=== PATIENT | female | born 1955 | race Caucasian/White ===

== ENCOUNTER 2017-11-01 07:10 | Day surgery (SDC) | payer MEDICAID ==
[2017-10-31 13:54] LABS: BASOPHILS 0.3 % (0-2); EOSINOPHILS 1.2 % (0-7); HEMATOCRIT 44.6 % (36.0-48.0); HEMOGLOBIN 14.1 g/dL (12-16); IMMATURE GRANULOCYTES 0.2 % (0-5); LYMPHOCYTES 36.9 % (15-50); MCH 27.5 pg (26.0-34.0); MCHC 31.6 g/dL (31.0-37.0); MCV 86.9 fL (80.0-100.0); MEAN PLATELET VOLUME 9.8 fL (7.4-10.4); MONOCYTES 9.3 % (2-11); NEUTROPHILS 52.1 % (40-80); PLATELET COUNT 239 10x3/uL (130-400); RBC 5.13 10x6/uL (4.00-5.40); RDW 16.1 % (11.5-14.5); WBC 10.1 10x3/uL (4.8-10.8)
[2017-10-31 14:40] LABS: ANION GAP 9.2 mmol/L (8-16); CALCIUM 9.2 mg/dL (8.5-10.1); CARBON DIOXIDE 32.1 mmol/L (21.0-32.0); CREATININE - SERUM 1.1 mg/dL (0.6-1.3); POTASSIUM - SERUM 4.3 mmol/L (3.5-5.1)
[~2017-11-01] VITALS: Ht 152.4 cm; Wt 90.7 kg
--- NOTE | ~2017-11-01 | OP ---
PATIENT NAME: KHARI MTZ MEDICAL RECORD: [id number] :51 LOCATION:D.OPS ADMISSION DATE: SURGEON: LUC MARADIAGA MD DATE OF OPERATION: 11/01/2017 PREOPERATIVE DIAGNOSIS: 1. Complex chronic back wound (3 cm). 2. Tobacco dependence syndrome. 3. Arthritis. 4. Hypertension. POSTOPERATIVE DIAGNOSES: 1. Complex chronic back wound (3 cm). 2. Tobacco dependence syndrome. 3. Arthritis. 4. Hypertension. PROCEDURE: Complex closure of chronic back wound (3 cm). SURGEON: Luc Maradiaga MD MOTORCYCLE SUBASSEMBLER: Lala Krishnan APRN REPORT OF PROCEDURE: The patient was placed in the left lateral decubitus position and the back was prepped and draped in sterile fashion. I removed the skin overlying the chronic wound on the back. The total with the subcutaneous defect was around 3 cm transversely. I went ahead and removed the inner lining of the tissue and down to about 1-1.5 cm depth. This continued into the fatty tissue and at this point, we had all normal appearing fatty tissue present in all directions. The skin was then cut transversely to avoid a dog earring of the wound. We then irrigated the wound with normal saline and assured there was no sign of any bleeding. I undermined the tissue on both sides to facilitate closure. The subcutaneous tissues were then reapproximated with multiple interrupted 3-0 Vicryl and the skin was closed with vertical mattress 2-0 nylons. The wound was then dressed appropriately. A total of 10 mL of 0.25% Marcaine with epinephrine was infused into the surrounding tissues. COMPLICATIONS: None. CONDITION: Stable. ANESTHESIA: General endotracheal and local. BLOOD LOSS: Minimal. TRANSINT:[id number] Voice Confirmation ID: [id number] DOCUMENT ID: [id number] OPERATIVE REPORT [id number] KHARI MTZ LUC MARADIAGA MD at 1147 CC: BASSAM GARCIA [id number] DICTATION DATE: 11/01/17 1034 EXPLOSIVE OPERATOR FUSE: 11/01/17 1059 [facility] [place] 11/01/17 [place] [address]
[~2017-11-01 07:10] MED LIST: ACCUPRIL40 MG PO; LASIX20 MG PO; OS-CAL 500+D TA1 TAB PO; PERCOCET 5/3251 TA1 PO; PRILOSEC20 MG PO; VITAMIN B-6200 M1 PO
[2017-11-01 07:58] VITALS: BP 168/73; Ht 152.4 cm; Wt 90.7 kg
[2017-11-01] MEDS ORDERED: HYDROCODONE-APA1 TAB PO (10:28)
== END 2017-11-01 12:25 | disposition home or self-care (01) ==
LOC: D.OPS 07:10 → D.PAN 09:15 → D.OPS 12:25
PROVIDERS: Surgery
DX: S31.000A Unspecified open wound of lower back and pelvis without penetration into retroperitoneum, initial encounter (principal); F17.200 Nicotine dependence, unspecified, uncomplicated; M19.90 Unspecified osteoarthritis, unspecified site; I10 Essential (primary) hypertension; Z01.812 Encounter for preprocedural laboratory examination

== ENCOUNTER → 2018-05-01 15:10 | Outpatient (CLI) | payer MEDICAID ==
[2017-11-01 07:58] VITALS: BMI 39.1
[~2018-05-01 15:10] MED LIST changes: +HYDROCODONE-APA1 TAB PO
== END | disposition home or self-care (01) ==
LOC: D.CT 15:10
DX: R51 Headache (principal)

== ENCOUNTER 2019-10-09 09:00 | Outpatient (CLI) | payer MEDICARE, MEDICAID ==
[2017-11-01 07:58] VITALS: BMI 39.1
== END 2019-10-09 10:00 | disposition home or self-care (01) ==
LOC: D.MAMMO 09:00
PROVIDERS: ATTEND Clinical Nurse Specialist Adult Health
DX: Z12.31 Encounter for screening mammogram for malignant neoplasm of breast (principal)